=== PATIENT | male | born 1995 | race Caucasian/White ===

== ENCOUNTER 2017-09-30 19:42 | Emergency (ER) | payer OTHER ==
[2017-09-30] MEDS ORDERED: LIDOCAINE 1% MDV 20ML VIAL As Ordered (21:50)
[2017-09-30] MEDS: LIDOCAINE 1% MDV 20ML VIAL SC (22:00)
== END 2017-09-30 23:20 | disposition home or self-care (01) ==
LOC: M ED 19:42
DX: S81.811A Laceration without foreign body, right lower leg, initial encounter (principal); V19.9XXA Pedal cyclist (driver) (passenger) injured in unspecified traffic accident, initial encounter; Y92.9 Unspecified place or not applicable; Y93.9 Activity, unspecified; Y99.9 Unspecified external cause status
CPT/HCPCS: 73590

== ENCOUNTER 2018-05-10 20:17 | Emergency (ER) | payer OTHER ==
[~2018-05-10] VITALS: Ht 175.3 cm; Wt 81.8 kg
[2018-05-10 20:18] VITALS: BP 135/73
[2018-05-10] MEDS ORDERED: AUGMENTIN 875 MG TAB PO ONE (22:15)
[2018-05-10] MEDS ORDERED: LIDOCAINE 1% MDV 20ML VIAL SC ONE (22:15)
[2018-05-10] MEDS ORDERED: AUGM875T28 PO (23:08)
== END 2018-05-10 23:19 | disposition home or self-care (01) ==
LOC: M ED 20:17
DX: S61.511A Laceration without foreign body of right wrist, initial encounter (principal); W54.0XXA Bitten by dog, initial encounter; Y92.009 Unspecified place in unspecified non-institutional (private) residence as the place of occurrence of the external cause

== ENCOUNTER 2018-08-06 16:44 | Emergency (ER) | payer OTHER ==
[~2018-08-06] VITALS: Ht 172.7 cm; Wt 79.1 kg
[~2018-08-06 16:44] MED LIST: AUGM875T28 PO
--- NOTE | 2018-08-06 17:30 | REP ---
Clinical: Chest pain and shortness of breath . Comparison: None . Technique: PA and lateral. Findings: The mediastinum and cardiac silhouette are normal. The lung bello are clear and without acute consolidation, effusion, or pneumothorax. The skeletal structures are intact and normal. Impression: 1. No acute cardiopulmonary process. Electronically Signed by Evens Brandon MD 08/06/2018 05:22 P
[2018-08-06 17:38] LABS: BASO % 0.5 % (0.0-1.0); EOS # 0.1 10^3/uL (0.0-0.50); EOS % 1.4 % (0.0-3.0); HEMATOCRIT 49.2 % (42.0-52.0); HEMOGLOBIN 16.6 g/dl (13.5-17.5); LYMPH # 2.2 10^3/uL (1.5-6.5); MEAN CORPUSCULAR HGB CONC 33.7 g/dl (32.0-36.5); MONO # 0.5 10^3/uL (0.0-0.8); MONO % 8.2 % (0.0-5.0); NEUTROPHILS % 51.7 % (36.0-66.0); PLATELET COUNT, AUTOMATED 282 10^3/uL (150-450); RED BLOOD COUNT 5.72 10^6/uL (4.30-6.10); WHITE BLOOD COUNT 5.8 10^3/uL (4.0-10.0)
--- NOTE | 2018-08-06 17:43 | REP ---
Clinical: Syncope . Comparison: None . Findings: The ventricles, sulci, and cisterns are normal in position and appearance. Sosa-white differentiation is maintained. No acute intracranial hemorrhage, mass/mass effect, pathology or trauma/injury. No evidence for acute infarction. No extra-axial fluid collection. Calvarium is intact. Paranasal sinuses and mastoid air cells are clear. Impression: Normal noncontrast head CT. No evidence for acute intracranial pathology or trauma/injury. Electronically Signed by Evens Brandon MD 08/06/2018 05:34 P
[2018-08-06 18:07] LABS: ALBUMIN 4.6 GM/DL (3.2-5.2); ALT/SGPT 26 U/L (12-78); BILIRUBIN,DIRECT 0.2 MG/DL (0.0-0.2); BILIRUBIN,TOTAL 0.6 MG/DL (0.2-1.0); BLOOD UREA NITROGEN 18 MG/DL (7-18); CALCIUM LEVEL 9.5 MG/DL (8.5-10.1); CARBON DIOXIDE LEVEL 30 MEQ/L (21-32); CHLORIDE LEVEL 104 MEQ/L (98-107); CK-MB VALUE MASS < 1.0 NG/ML (<3.6); CPK CREATINE PHOSPHOKINASE 159 U/L (39-308); CREATININE FOR GFR 1.25 MG/DL (0.70-1.30); FREE T4 1.31 NG/DL (0.76-1.46); GLOMERULAR FILTRATION RATE > 60.0 (>60); GLUCOSE, FASTING 85 MG/DL (70-100); MAGNESIUM LEVEL 2.5 MG/DL (1.8-2.4); MB/CK RELATIVE INDEX 0.63 (< OR =4); SODIUM LEVEL 140 MEQ/L (136-145); TOTAL PROTEIN 7.5 GM/DL (6.4-8.2); TROPONIN I < 0.02 NG/ML (< 0.10)
[2018-08-06] MEDS ORDERED: MECLIZINE 25 MG TABLET PO ONE (18:15)
--- NOTE | 2018-08-06 18:15 | ECGEPIP ---
Stationary ECG Study [facility] - ED Test Date: 2018-08-06 Pat Name: JAKOB JO Department: Room: - Gender: M [employer]: : [id number] Requested By: Laura Borrero Order Number: [id number] Reading MD: Laura Borrero Measurements Intervals [place] Rate: 61 P: -7 UT: 136 QRS: 57 QRSD: 92 T: 30 QT: 405 QTc: 409 Interpretive Statements SINUS RHYTHM NO PRIOR FOR COMPARISON Electronically Signed On 08-06-2018 18:14:40 EDT by Laura Borrero
[2018-08-06] MEDS ORDERED: MECL-68 PO (19:09)
[2018-08-06 19:18] VITALS: BP 110/56
== END 2018-08-06 19:19 | disposition home or self-care (01) ==
LOC: M ED 16:44
DX: R42 Dizziness and giddiness (principal)

== ENCOUNTER 2018-08-29 06:22 | Emergency (ER) | payer OTHER ==
[~2018-08-29] VITALS: Ht 175.3 cm; Wt 77.7 kg
[~2018-08-29 06:22] MED LIST changes: +MECL-68 PO
[2018-08-29] MEDS ORDERED: ONDANSETRON 4MG/2ML VIAL (J2405) IV ONE (06:45)
[2018-08-29 06:58] LABS: BASO % 0.6 % (0.0-1.0); EOS # 0.2 10^3/uL (0.0-0.50); EOS % 2.8 % (0.0-3.0); HEMATOCRIT 48.3 % (42.0-52.0); HEMOGLOBIN 16.3 g/dl (13.5-17.5); LYMPH # 2.5 10^3/uL (1.5-6.5); LYMPH % 47.7 % (24.0-44.0); MEAN CORPUSCULAR HEMOGLOBIN 29.4 pg (27.0-33.0); MEAN CORPUSCULAR HGB CONC 33.7 g/dl (32.0-36.5); MONO # 0.6 10^3/uL (0.0-0.8); MONO % 11.3 % (0.0-5.0); NEUTROPHILS % 37.4 % (36.0-66.0); PLATELET COUNT, AUTOMATED 259 10^3/uL (150-450); RED BLOOD COUNT 5.55 10^6/uL (4.30-6.10); WHITE BLOOD COUNT 5.3 10^3/uL (4.0-10.0)
[2018-08-29 07:23] LABS: ALBUMIN 4.4 GM/DL (3.2-5.2); ALT/SGPT 41 U/L (12-78); BILIRUBIN,DIRECT 0.2 MG/DL (0.0-0.2); BILIRUBIN,TOTAL 0.6 MG/DL (0.2-1.0); BLOOD UREA NITROGEN 28 MG/DL (7-18); CALCIUM LEVEL 9.5 MG/DL (8.5-10.1); CARBON DIOXIDE LEVEL 31 MEQ/L (21-32); CHLORIDE LEVEL 106 MEQ/L (98-107); CREATININE FOR GFR 1.21 MG/DL (0.70-1.30); GLOMERULAR FILTRATION RATE > 60.0 (>60); GLUCOSE, FASTING 54 MG/DL (70-100); POTASSIUM SERUM 4.6 MEQ/L (3.5-5.1); SODIUM LEVEL 141 MEQ/L (136-145); TOTAL PROTEIN 7.1 GM/DL (6.4-8.2)
[2018-08-29] MEDS ORDERED: NS 1,000 ML IV ONE (08:00)
[2018-08-29] MEDS ORDERED: MECLIZINE 25 MG TABLET PO ONE (09:00)
[2018-08-29] MEDS ORDERED: ONDA4TAB6 PO (09:09)
[2018-08-29] MEDS ORDERED: MECL-86 PO (09:09)
[2018-08-29 09:16] VITALS: BP 118/54
== END 2018-08-29 09:24 | disposition home or self-care (01) ==
LOC: M ED 06:22
DX: H81.10 Benign paroxysmal vertigo, unspecified ear (principal); R11.2 Nausea with vomiting, unspecified
CPT/HCPCS: 80048; 80076; 85025; 96374; 99284; J2405